=== PATIENT | female | born 1945 | race African-American/Black ===

== ENCOUNTER 2016-09-05 15:09 | Emergency (ER) | payer MEDICAID ==
[~2016-09-05] VITALS: Ht 162.6 cm; Wt 63.0 kg
[2016-09-05] MEDS ORDERED: HYDR25TA PO (15:23)
[2016-09-05] MEDS ORDERED: OLME20TA14 PO (15:23)
[2016-09-05] MEDS ORDERED: ASPI-1159 PO (15:23)
[2016-09-05 20:01] VITALS: BP 151/89
== END 2016-09-05 20:01 | disposition home or self-care (01) ==
LOC: ER 15:34
DX: S00.83XA Contusion of other part of head, initial encounter (principal); S80.212A Abrasion, left knee, initial encounter; I10 Essential (primary) hypertension; Z88.0 Allergy status to penicillin; Z79.82 Long term (current) use of aspirin; Z98.890 Other specified postprocedural states; W01.0XXA Fall on same level from slipping, tripping and stumbling without subsequent striking against object, initial encounter; Y93.89 Activity, other specified; Y92.89 Other specified places as the place of occurrence of the external cause; Y99.8 Other external cause status
CPT/HCPCS: 70450; 70486; 72125; 73030; 73060; 73080; 73110; 73130; 73502; 73562; 99284; Z7610

== ENCOUNTER 2016-09-15 13:51 | Emergency (ER) | payer MEDICAID ==
[~2016-09-15] VITALS: Ht 162.6 cm; Wt 62.0 kg
[~2016-09-15 13:51] MED LIST: ASPI-1159 PO; HYDR25TA PO; OLME20TA14 PO
[2016-09-15] MEDS ORDERED: SODIUM CHLORIDE 0.9% 1,000 ML IV ONE (14:34)
[2016-09-15] MEDS ORDERED: ACETAMINOPHEN 325MG TABLET PO ONE (14:45)
[2016-09-15 14:58] LABS: BASOPHILS % 0.6 % (0.0-2.0); EOSINOPHILS % 1.7 % (0.0-5.0); HEMATOCRIT. 37.7 % (36.0-48.0); HEMOGLOBIN. 12.6 g/dL (12.0-16.0); LYMPHOCYTES % 26.5 % (20.0-50.0); MEAN CORPUSCULAR HEMOGLOBIN 29.4 pg (28.0-32.0); MEAN CORPUSCULAR VOLUME 87.8 fL (81.0-99.0); MEAN PLATELET VOLUME 8.6 fl (7.4-10.4); MONOCYTES % 14.3 % (2.0-8.0); NEUTROPHILS % 56.9 % (40.0-76.0); PLATELET 209 x1000/uL (130-400); RED BLOOD CELL COUNT 4.29 mill/uL (4.2-5.4); RED CELL DISTRIBUTION WIDTH 15.6 % (11.6-14.6)
[2016-09-15 15:11] LABS: CARBON DIOXIDE 30 mEq/L (21-32); CHLORIDE 107 mEq/L (98-107); D-DIMER 0.35 mg/L FEU (<0.50); PROTHROMBIN TIME 10.7 sec
[2016-09-15 15:17] LABS: CREATINE KINASE 221 IU/L (26-192)
[2016-09-15 15:19] LABS: TROPONIN I < 0.02 ng/mL (0.00-0.04)
[2016-09-15 17:42] VITALS: BP 137/73
== END 2016-09-15 17:51 | disposition home or self-care (01) ==
LOC: ER 14:39 → CANBEDREQ 21:07
DX: R07.89 Other chest pain (principal); R00.1 Bradycardia, unspecified; Z88.0 Allergy status to penicillin; Z79.82 Long term (current) use of aspirin; I10 Essential (primary) hypertension
CPT/HCPCS: 36415; 71010; 80053; 82550; 83605; 83690; 83880; 84484; 85025; 85379; 85610; 93005; 96360; 96361; 99285; J7030; Z7610